=== PATIENT | female | born 1950 | race Caucasian/White ===

== ENCOUNTER 2021-02-25 11:08 | Emergency (ER) | payer OTHER, MEDICARE ==
[~2021-02-25] VITALS: Ht 165.1 cm; Wt 95.2 kg
[~2021-02-25 11:08] MED LIST: ATENOLOL25 MG PO; BENADRYL25 MG PO; CIPROFLOXACIN500 MG PO; COLACE100 MG PO; HYDROCODON-ACE1 EA10 PO; IBUPROFEN200 MG PO; IBUPROFEN400 MG PO; MEDROXYPROGESTE10 MG PO; METFORMIN HCL500 M1 PO; METFORMIN HCL500 MG PO; METRONIDAZOLE250 MG PO; MULTIPLE VITAM1 EAC1 PO; PAIN RELIEVER500 MG PO; PEPCID20 MG PO; PREDNISONE20 MG PO; TYLENOL WITH C1 EACH PO; [UNRECOGNIZED DRUG - SUPPLY] TP
== END 2021-02-25 13:46 | disposition home or self-care (01) ==
LOC: ED 11:08
DX: S20.212A Contusion of left front wall of thorax, initial encounter (principal); V47.6XXA Car passenger injured in collision with fixed or stationary object in traffic accident, initial encounter; E11.9 Type 2 diabetes mellitus without complications; Z88.0 Allergy status to penicillin; Z79.899 Other long term (current) drug therapy; Z79.84 Long term (current) use of oral hypoglycemic drugs
CPT/HCPCS: 71101; 99284-25

== ENCOUNTER 2024-04-10 17:17 | Emergency (ER) | payer MEDICARE ==
[~2024-04-10] VITALS: Ht 165.1 cm; Wt 101.2 kg
[~2024-04-10 17:17] MED LIST changes: +PIOGLITAZONE HC15 MG PO
[2024-04-10 17:42] LABS: BASOPHILS 0.5 % (0-2); EOSINOPHILS 0.5 % (0-6); HEMATOCRIT 42.8 % (35.0-50.0); HEMOGLOBIN 14.6 g/dL (12.0-18.0); LYMPHOCYTES 14.3 % (24-44); MCHC 34.1 g/dl (30-36); MCV 82.1 fl (81-99); MONOCYTES 4.8 % (0-12); NEUTROPHILS 79.9 % (39-80); PLATELET COUNT 265 K/uL (140-440); RBC 5.22 M/ul (4.3-5.7); RDW 15.1 (10.5-15.0)
[2024-04-10] MEDS ORDERED: ondansetron HCL 4 MG/2 ML VIAL IV PRN (17:45)
[2024-04-10] MEDS ORDERED: HYDROmorphone HCL 1 MG/ML SYR IV ONE (17:45)
[2024-04-10 18:10] LABS: ALBUMIN 3.8 g/dL (3.4-5.0); ALBUMIN/GLOBULIN RATIO 1.06 (1.1-2.4); ANION GAP 15.3 (7-21); BILIRUBIN, TOTAL 0.9 ng/dL (0.2-1.0); BUN/CREATININE RATIO 10.97 (6.0-28.6); CALCIUM 9.6 mg/dL (8.5-10.1); CREATININE, SERUM 0.82 mg/dL (0.55-1.02); POTASSIUM 4.3 mmol/L (3.5-5.1); PROTEIN, TOTAL 7.4 g/dL (6.4-8.2)
[2024-04-10] MEDS ORDERED: BUTALB-ACETAMI1 EACH PO (20:26)
[2024-04-10 20:28] VITALS: BP 155/56
== END 2024-04-10 20:30 | disposition home or self-care (01) ==
LOC: ED 17:17
PROVIDERS: Emergency Medicine
DX: R51.9 Headache, unspecified (principal); I10 Essential (primary) hypertension; E11.9 Type 2 diabetes mellitus without complications; Z88.0 Allergy status to penicillin; Z79.899 Other long term (current) drug therapy; Z79.84 Long term (current) use of oral hypoglycemic drugs
CPT/HCPCS: 36415; 70450; 70496; 70498; 80053; 85025; 99284-25; J1171; J2405; Q9967